=== PATIENT | male | born 1990 | race Caucasian/White ===

== ENCOUNTER 2021-08-11 09:24 | Emergency (ER) | payer BC, OTHER ==
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
--- NOTE | 2021-08-12 17:21 | CR ---
DATE OF SERVICE: 07/12/2021 CLINICAL DATA: Injury. LEFT LOWER LEG: No acute fracture or dislocation. No lytic or blastic bone lesions. [id number] [facility]
== END 2021-08-11 10:45 | disposition home or self-care (01) ==
LOC: LB.ED 09:24
DX: S80.12XA Contusion of left lower leg, initial encounter (principal); W20.8XXA Other cause of strike by thrown, projected or falling object, initial encounter
CPT/HCPCS: 73590-LT; 99283-25

== ENCOUNTER 2021-08-29 09:33 | Emergency (ER) | payer OTHER, BC ==
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
== END 2021-08-29 11:40 | disposition home or self-care (01) ==
LOC: LB.ED 09:33
DX: S20.212A Contusion of left front wall of thorax, initial encounter (principal); V69.9XXA Occupant (driver) (passenger) of heavy transport vehicle injured in unspecified traffic accident, initial encounter; Y92.410 Unspecified street and highway as the place of occurrence of the external cause
CPT/HCPCS: 71046; 99283-25